=== PATIENT | male | born 1975 | race Hispanic/Latino ===

== ENCOUNTER 2019-08-17 05:57 | Observation (INO) | payer OTHER ==
[2019-08-15 13:43] LABS: BASOPHILS # (AUTO) 0.1 (0.0-0.1); BASOPHILS % 0.6 % (0.0-1.0); EOSINOPHILS # (AUTO) 0.5 (0.0-0.4); EOSINOPHILS % 6.3 % (0.0-6.0); HEMATOCRIT 47.5 % (38.2-49.6); HEMOGLOBIN 15.3 g/dL (14.0-18.0); LYMPHOCYTES # (AUTO) 2.7 (1.0-3.2); LYMPHOCYTES % 32.3 % (18.0-39.1); MEAN CORPUSCULAR HEMOGLOBIN 29.9 pg (28-32); MEAN CORPUSCULAR HGB CONC 32.2 g/dL (31-35); MEAN CORPUSCULAR VOLUME 92.8 fL (81-99); MONOCYTES # (AUTO) 0.8 (0.2-0.8); MONOCYTES % 9.1 % (4.4-11.3); NEUTROPHILS # (AUTO) 4.3 (2.1-6.9); NEUTROPHILS % 51.3 % (38.7-80.0); PLATELET COUNT 289 x10e3/uL (140-360); RED BLOOD COUNT 5.12 x10e6/uL (4.3-5.7); RED CELL DISTRIBUTION WIDTH 12.7 % (11.7-14.4)
[2019-08-15 13:59] LABS: INR 0.89; PROTHROMBIN TIME 12.5 seconds (11.9-14.5)
[2019-08-15 14:00] LABS: PARTIAL THROMBOPLASTIN TIME 36.8 seconds (23.8-35.5)
[2019-08-15 14:06] LABS: ANION GAP 14.9 mmol/L (8-16); BLOOD UREA NITROGEN 15 mg/dL (7-26); BUN/CREATININE RATIO 15 (6-25); CALCIUM 10.2 mg/dL (8.4-10.2); CARBON DIOXIDE 27 mmol/L (22-29); CHLORIDE 102 mmol/L (98-107); CREATININE, SERUM 0.98 mg/dL (0.72-1.25); EST GLOMERULAR FILTRATION RATE > 60 ML/MIN (60-); GLUCOSE 97 mg/dL (74-118); POTASSIUM 3.9 mmol/L (3.5-5.1); SODIUM 140 mmol/L (136-145)
--- NOTE | 2019-08-15 15:52 | Diagnostic Imaging Report ---
EXAMINATION: CHEST 2 VIEWS INDICATION: Pre-operative COMPARISON: None FINDINGS: LINES/TUBES:None LUNGS:The lungs are well-inflated. No focal consolidation or pulmonary edema. PLEURA:No pleural effusion or pneumothorax. MEDIASTINUM:The cardiomediastinal silhouette appears normal in size and shape. BONES/SOFT TISSUES:No acute osseous injury. ABDOMEN:No free air under the diaphragm. IMPRESSION: No focal pneumonia or pulmonary edema. Signed by: Robert Harris MD on 08/15/2019 3:49 PM
[2019-08-17] VITALS (7 sets, daily range): BP systolic 103–139; BP diastolic 69–79
[~2019-08-17] VITALS: Ht 180.3 cm; Wt 105.7 kg
[~2019-08-17 05:57] MED LIST: CRESTOR10 MG PO
--- OUTSIDE RECORDS SUMMARY | 2019-08-17 06:14 | XMS REPORT ---
Author Author [facility] Address Unknown Phone Unavailable Care Team Providers Care Nylon Operator Name Role Phone LIZETT CARRANZA Unavailable Unavailable Problems This patient has no known problems. Allergies, Adverse Reactions, Alerts This patient has no known allergies or adverse reactions. Medications This patient has no known medications. Results Test Description Test Time Test Comments Text Results Atomic Results Result Comments CHEST 2 VIEWS 2019-08-15 15:48:00 [place] [address] Patient Name: TANA LAZCANO MR #: [id number] : 1975 Age/Sex: 43/M Req #: [id number] [facility] Physician: Ordered by: LIZETT CARRANZA MD Report #: [id number] Location: OR Room/Bed: Procedure: [id number] DX/CHEST 2 VIEWS Exam Date: 08/15/19 Exam Time: 1500 REPORT STATUS: Signed EXAMINATION: CHEST 2 VIEWS INDICATION: Pre-operative COMPARISON: None FINDINGS: LINES/TUBES:None LUNGS:The lungs are well-inflated. No focal consolidation or pulmonary edema. PLEURA:No pleural effusion or pneumothorax. MEDIASTINUM:The cardiomediastinal silhouette appears normal in size and shape. BONES/SOFT TISSUES:No acute osseous injury. ABDOMEN:No free air under the diaphragm. IMPRESSION: No focal pneumonia or pulmonary edema. Signed by: Catrina Ferrara MD on 08/15/2019 3:49 PM Dictated By: CATRINA FERRARA MD 154 Transcribed By: LADY Jacobo on 08/15/191548 COPY TO: LIZETT CARRANZA MD
[2019-08-17] MEDS ORDERED: BACITRACIN 50,000 UNIT VIAL ONE (06:34)
[2019-08-17] MEDS ORDERED: BUPIVACAINE 0.5%/EPI 30 ML SDV INJ ONE (06:34)
[2019-08-17] MEDS ORDERED: THROMBIN FOR SOLN 5,000 UNIT VIAL ONE (06:34)
[2019-08-17] MEDS ORDERED: LIDOCAINE HCL (LTA) 4 ML SOLN ONE (06:53)
[2019-08-17] MEDS: CEFAZOLIN SOD 1 GM/NS 50ML 100 ML IV ONE (07:29)
[2019-08-17] MEDS ORDERED: ACETAMINOPHEN 1000 MG/100 ML 100 ML IV ONE (07:36)
[2019-08-17] MEDS ORDERED: IBUPROFEN 800MG/ 250ML 250 ML IV ONE (09:12)
[2019-08-17] MEDS: LACTATED RINGER'S 1,000 ML IV SCH ×2 (10:16→19:02)
[2019-08-17] MEDS ORDERED: CARISOPRODOL 350 MG TAB PO PRN (10:30)
[2019-08-17] MEDS ORDERED: OXYCODONE/ACETAMINOPHEN 5-325 1 EACH TABLET PO PRN (10:30)
[2019-08-17] MEDS ORDERED: MAGNESIUM/ALUMINUM/SIMETHICONE 30 ML UDC PO PRN (10:30)
[2019-08-17] MEDS ORDERED: PROMETHAZINE HCL (IM) 25 MG/ML VIAL IM PRN (10:30)
[2019-08-17] MEDS ORDERED: MORPHINE SULFATE 5 MG/ML VIAL IM PRN (10:30)
[2019-08-17] MEDS ORDERED: ONDANSETRON HCL INJ 2MG/ML 2ML 2 MG/ML VIAL IV PRN (10:30)
[2019-08-17] MEDS ORDERED: ACETAMINOPHEN 325 MG TAB PO PRN (10:30)
[2019-08-17] MEDS ORDERED: CEPACOL SORE THROAT LOZENGES PO PRN (10:30)
[2019-08-17] MEDS ORDERED: FENTANYL CITRATE/PF 100MCG/2 ML INJ ONE ×2 (11:00→14:06)
--- NOTE | 2019-08-17 12:20 | NUR ---
Received patient from PACU. Respiration even and unlabored without SOB. Surgical site dressing to Lumbar area intact, clean and dry. No bleeding noted. Bilateral foot pulses palpated. Denies pain at this time. O2 at 3L NC in placed at this time with O2 sat at 100 %. Lungs clear to auscultation. Call light in reach.
--- NOTE | 2019-08-17 12:36 | Operative Report ---
DATE OF PROCEDURE: 08/17/2019 SURGEON: Matthew Tripathi MD PREOPERATIVE DIAGNOSIS: Left L3-L4 foraminal and extraforaminal disk herniation with L3 radiculopathy, M51.16. POSTOPERATIVE DIAGNOSIS: Left L3-L4 foraminal and extraforaminal disk herniation with L3 radiculopathy, M51.16. PROCEDURE: Left L3-L4 lateral foraminotomy and microsurgical resection of extruded disk, [id number]. ANESTHESIA: General. INDICATIONS: The patient is a 43-year-old man, who presents with a left L3-L4 foraminal and extraforaminal disk herniation symptomatic with an intractable left L3 radiculopathy. He was taken to the operating room for microsurgical decompression of the L3 nerve root through the lateral paramedian approach. PROCEDURE IN DETAIL: After induction of anesthesia, the patient was placed on the operating table in prone position over Hieu frame. Lumbar region was prepped and draped in sterile fashion. A preoperative x-ray was obtained. A small paramedian incision was created over the L3-L4 region on the left. The lumbar fascia was opened to the left of midline and dissection was carried out to expose the left side of the L3 lamina and the pars interarticularis of L3. Retraction was maintained through an expandable Aesculap speculum retractor. An x-ray confirmed correct localization below the L3 pedicle. The operating microscope was brought in. A high-speed drill equipped with a 4 mm clementina bur was used to drill the lateral rim of the pars interarticularis of L3 and the superior lateral aspect of the inferior articular process of L3. The lateral extension of the ligamentum flavum over the L3 neuroforamen was resected and the L3 nerve root was exposed below the pedicle. The epidural veins and fat inferior to the nerve root were bipolar coagulated and divided with micro scissors. A ball probe was then passed under nerve root and directed laterally and used to retrieve the edge of the extraforaminal disk herniation. This was then grasped with a micropituitary rongeur and a large fragment of disk was retrieved from the extraforaminal compartment and removed. This maneuver was repeated several additional time and several additional fragments of disk were retrieved and removed until the L3 nerve root was felt to be completely decompressed. Meticulous hemostasis was secured. Retractor was removed. The lumbar fascia was closed with 0 Vicryl suture. Subcutaneous layer was closed with 2-0 Vicryl sutures. The skin was closed with 3-0 Monocryl sutures in subcuticular fashion. Steri-Strips and dressing were applied. The patient was awakened and extubated, and taken to postanesthesia care unit in stable neurological condition. No intraoperative complications were encountered. Estimated blood loss was 10 mL. Matthew Tripathi MD PP/XAVI /[id number]
[2019-08-17] MEDS ORDERED: MORPHINE SULFATE INJ 10 MG/ML ONE (14:06)
[2019-08-17] MEDS ORDERED: MIDAZOLAM HCL 2 MG/2 ML VIAL ONE (14:06)
[2019-08-17] MEDS ORDERED: NEOSTIGMINE 5 MG/5ML SYR ONE (14:16)
[2019-08-17] MEDS ORDERED: GLYCOPYRROLATE INJ 1MG/ 5 ML SYR ONE (14:16)
[2019-08-17] MEDS ORDERED: LIDOCAINE HCL 2% LOCAL INJ 5 ML SDV VIAL INJ ONE (14:16)
[2019-08-17] MEDS ORDERED: SUCCINYLCHOLINE 200 MG/10 ML SYR ONE (14:16)
[2019-08-17] MEDS ORDERED: DEXAMETHASONE SOD PHOS INJ 4 MG/ML VIAL ONE (14:16)
[2019-08-17] MEDS ORDERED: PROPOFOL IV EMULSION 10 MG/ML 20 ML VIAL ONE (14:16)
[2019-08-17] MEDS ORDERED: ROCURONIUM BROMIDE 10 MG/ML 5ML VIAL ONE (14:16)
[2019-08-17] MEDS ORDERED: ONDANSETRON HCL INJ 2MG/ML 2ML 2 MG/ML VIAL ONE (14:16)
[2019-08-17] MEDS ORDERED: SEVOFLURANE INHAL SOLN 250 ML PEN BTL ONE (14:16)
[2019-08-17] MEDS: HYDROMORPHONE 2MG/ML 2 MG/ML ML IV PRN ×2 (15:27→22:01)
[2019-08-17] MEDS: CEFAZOLIN SOD 1 GM/NS 50ML 50 ML IV SCH (18:14)
--- NOTE | 2019-08-17 19:01 | NUR ---
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 Respiration even and unlabored without SOB. Call light in reach.
[2019-08-17] MEDS ORDERED: ZOLPIDEM TARTRATE 5 MG TAB PO PRN (21:00)
[2019-08-18] VITALS: BP 102/70
[2019-08-18] MEDS: LACTATED RINGER'S 1,000 ML IV SCH (00:21)
[2019-08-18] MEDS: CEFAZOLIN SOD 1 GM/NS 50ML 50 ML IV SCH ×2 (00:21→10:26)
[2019-08-18 04:00] VITALS: BP 103/66
[2019-08-18 07:26] VITALS: BP 95/58
[2019-08-18 08:00] VITALS: BP 95/58
[2019-08-18 11:19] VITALS: BP 116/75
== END 2019-08-18 14:07 | disposition home or self-care (01) ==
LOC: OR 05:57 → PACU V 11:56 → IMCU 12:16
PROVIDERS: ADMIT Neurological Surgery; ATTEND Neurological Surgery
DX: M51.16 Intervertebral disc disorders with radiculopathy, lumbar region (principal); E78.5 Hyperlipidemia, unspecified; M54.5 Low back pain; Z01.810 Encounter for preprocedural cardiovascular examination; Z01.812 Encounter for preprocedural laboratory examination; Z01.811 Encounter for preprocedural respiratory examination
CPT/HCPCS: 36415; 63056; 71046; 72020; 80048; 85025; 85610; 85730; 86850; 86900; 88304; 93005; G0378 ×2; J0131; J0690 ×2; J1100; J1170; J2001; J2250; J2270; J2405; J2550; J2704; J3010; J3490; J7121 ×2